=== PATIENT | female | born 1985 | race Caucasian/White ===

== ENCOUNTER 2016-12-11 15:49 | Emergency (ER) | payer BC, OTHER ==
[~2016-12-11] VITALS: Ht 154.9 cm; Wt 70.9 kg
[~2016-12-11 15:49] MED LIST: CLXOPS3 OP
[2016-12-11 15:50] VITALS: BP 145/77; PULSE 115; TEMP 36.9; O2SAT 97; Ht 154.9 cm; Wt 70.9 kg
[2016-12-11] MEDS ORDERED: IBUPROFEN 600 MG TAB PO STA (16:11)
[2016-12-11] MEDS ORDERED: HYDR-5688 PO (16:20)
--- NOTE | 2016-12-11 18:29 | EMERGENCY ROOM VISIT NOTE ---
History First contact with patient: 15:56 Chief Complaint: DENTAL PAIN Stated Complaint: SHOOTING PAIN FROM JAW TO EAR History of Present Illness The patient is a 31 year old female who presents to the Emergency Room via private vehicle accompanied by male with complaints of "shooting pain from jaw and ear". The patient states that 30 minutes prior to arrival she was walking in a store when she developed right sudden onset jaw pain. She states that she believes is coming from her posterior molars. She rates the pain as a 5/10. It is sharp in nature. She denies any fevers, chills or drainage from the mouth. Review of Systems A complete 6-point Review of Systems was discussed with the patient, with pertinent positives and negatives listed in the History of Present Illness. All remaining Review of Systems questions can be considered negative unless otherwise specified. Past Medical/Surgical History Asthma, bronchitis. Family History Diabetes, high blood pressure, gallbladder disease, seizures. Social History Smoking Status: Current Every Day Smoker Patient lives at home with [facility], [place], admits to tobacco and alcohol products. Current/Historical Medications Scheduled PRN Hydrocodone/Acetaminophen 5MG/325MG ([place] 5MG/325MG), 1 TABLET PO Q6 PRN for Pain Physical Exam Vital Signs Date Time Temp Pulse Resp B/P (MAP) Pulse Ox O2 Delivery O2 Flow Rate FiO2 12/11/16 15:50 36.9 115 18 145/77 97 Room Air Physical Exam VITAL SIGNS - Vital signs and nursing notes were reviewed. Stable. Afebrile. Tachycardic, and anxious. GENERAL -31-year-old female appearing her stated age who is in no acute distress. But does appear to be in pain. Communicates well with provider and answers questions appropriately. HEAD - Normocephalic, Atraumatic. No Manley's Sign or Raccoon's Eyes. No depressed skull fractures palpable. EYES - PERRL with EOMI bilaterally. EARS - No deformities of external structures noted on gross examination bilaterally. No pain elicited with palpation of the tragus bilaterally. External auditory canals without discharge or otorrhea. Tympanic membranes pearly vora without retraction or bulging. No fluid or purulent material visualized behind the TM. NOSE - Midline and without cyanosis. No epistaxis or purulent drainage noted. Septum midline without deviation or septal hematoma noted. MOUTH/OROPHARYNX - Without perioral cyanosis. Buccal mucosa pink and moist and without leukoplakia. Tongue midline with equal elevation of palate bilaterally. No tonsillar hypertrophy, erythema, or exudates noted. Fair dentition noted. The dentition is unremarkable. There is tenderness to palpation overlying the right TMJ region. No evidence of abscess. There is no mastoid tenderness. No other areas of tenderness. Upon clenching the jaw there is referred pain to the right TMJ region. NECK - Neck with FROM. Supple to palpation. No lymphadenopathy noted. No nuchal rigidity. Medical Decision & Procedures Laboratory Results Test 12/11/16 16:11 Medications Administered Medications (Trade) Dose Ordered Sig/Baljinder Route Start Time Stop Time Status Last Admin Dose Admin Ibuprofen (Motrin Tab) 600 mg NOW STAT PO 12/11/16 16:11 12/11/16 16:13 DC 12/11/16 16:42 600 MG Medical Decision Patient was seen and evaluated as above. After obtaining a thorough history and physical examination it is most evident the patient is experiencing TMJ syndrome. Teeth are unremarkable. There is no tenderness to palpation of the teeth. The gums are unremarkable. No evidence of abscess or infection. There is tenderness overlying the TMJ joint, particularly with that of opening and closing the jaw. There is referred pain from this region. Her vital signs are stable. At this time she appears stable for outpatient management, and has a dentist appointment tomorrow. She was also encouraged to follow up with oral surgeon, and her family doctor. She was educated upon worrisome symptoms which return, had questions about his discharge, and was discharged home in good condition. She was given ibuprofen here for her pain. [place] for home. In the evaluation and treatment of this patient, the following differential diagnoses were considered: Periapical Abscess, Osteonecrosis of the Jaw, Dental Fracture, Dental Caries, Benny's Angina, Vincent's Angina, Facial Cellulitis. [place] Drug Monitoring Program Search Results: patient reviewed within database, no issues identified Impression Primary Impression: tmj pain Departure Information Dispostion Home / Self-Care Condition GOOD Prescriptions Hydrocodone/Acetaminophen 5MG/325MG ([place] 5MG/325MG) Tab 1 TABLET PO Q6 Y for Pain, #12 TAB For Initial Treatment Prov: Rodger Waggoner PA-C 12/11/16 Referrals No Doctor, Assigned (PCP) Leo Manzo D.D.S. Patient Instructions ED TMJ Syndrome, My [facility] Additional Instructions You have been treated in the Emergency Department for Dental Pain which is believed to be coming from your right jaw joint (TMJ). You have been prescribed NORCO to be used for pain control. This is a narcotic medication. You cannot drive or consume alcohol while on this medicine. This medicine should only be used for pain that cannot be controlled with over-the- counter pain medicines. For pain control, you can use the following [id number] medicines (if >12 yo): - Regular strength (325mg/tab) Tylenol (acetaminophen) 2 tabs every 4-6 hours as needed. Do not exceed 12 tablets in a 24 hour period. Avoid taking more than 3 grams (3000 mg) of Tylenol per day. This includes any other sources of acetaminophen you may take on a regular basis. - Regular strength (200 mg/tab) Advil (ibuprofen) 1-2 tabs every 4-6 hours as needed. Do not exceed a dose of 3200 mg per day. Refrain from smoking cigarettes or using chewing tobacco until you have been evaluated by your dentist/family doctor. Keeping beverages lukewarm and consuming soft foods can decrease your pain. Warm compresses over the affected area may offer some relief. Please also consider contacting an oral surgeon who specializes in this management if the pain continues (Dr. Manzo). Number is listed. Please consider warm compresses, ibuprofen as indicated for inflammation and please refrain from chewy foods and items such as pizza, dough, etc. Return to the emergency department if you develop the following symptoms despite treatment course outlined above: fever, intractable pain, increased redness, swelling, or purulent discharge.
== END 2016-12-11 16:52 | disposition home or self-care (01) ==
LOC: C.EDB 15:50 → C.EDD 16:52
DX: M26.629 Arthralgia of temporomandibular joint, unspecified side (principal); K08.89 Other specified disorders of teeth and supporting structures; J45.909 Unspecified asthma, uncomplicated; Z87.09 Personal history of other diseases of the respiratory system; Z82.0 Family history of epilepsy and other diseases of the nervous system; Z82.49 Family history of ischemic heart disease and other diseases of the circulatory system; Z83.3 Family history of diabetes mellitus; Z83.79 Family history of other diseases of the digestive system; F17.200 Nicotine dependence, unspecified, uncomplicated